=== PATIENT | female | born 1960 | race Caucasian/White ===

== ENCOUNTER 2017-04-13 08:42 | Emergency (ER) | payer BC ==
[~2017-04-13] VITALS: Ht 162.6 cm; Wt 73.0 kg
[~2017-04-13 08:42] MED LIST: BENADRYL25 MG PO; CIPRO500 MG PO; MELATONIN3 MG PO; MOTRIN600 MG PO; NAPROSYN250 MG PO; NEXIUM40 MG PO; PRILOSEC20 MG PO; PROZAC20 M1 PO; VITAMIN B-12500 MCG PO; VITAMIN D-32000 UNIT PO; XYZAL5 MG PO; ZOFRAN4 MG PO
[2017-04-13 10:30] LABS: EOSINOPHIL (%) 0 % (0-5); INSTRUMENT ABS NEUTROPHIL CT 2.8 K/uL; LYMPHOCYTE COUNT 0.6 K/uL (1.0-2.8); MCH 26.6 PG (29.0-34.0); MCHC 33.3 G/DL (30.0-36.0); MEAN PLAT.VOLUME 10.1 uM^3 (9.5-12.4); MONOCYTE (%) 8.5 % (3-12); MONOCYTE COUNT 0.3 K/uL (0-0.8); NEUTROPHIL (%) 74.4 % (45-76); NEUTROPHIL COUNT 2.8 K/uL (1.8-6.4); PLATELET COUNT 155 K/uL (156-360); RBC DIS.WIDTH-CV 14.2 % (11.8-14.6); RBC DIS.WIDTH-SD 41.1 % (39-53); WHITE BLOOD COUNT 3.8 K/uL (4.1-10.2)
[2017-04-13 10:35] LABS: CHLORIDE 107 mEq/L (99-109); POTASSIUM 3.8 mEq/L (3.7-5.4); SODIUM 138 mEq/L (136-147)
[2017-04-13 10:37] LABS: GLUCOSE 118 mg/dL (70-99)
[2017-04-13 10:39] LABS: ANION GAP 11 MEQ/L (2-14); TOTAL BILIRUBIN 0.4 mg/dL (0.0-1.0)
[2017-04-13 10:41] LABS: ALKALINE PHOSPHATASE 75 IU/L (3-129); GFR ESTIMATE (CALCULATED) > 59 mL/min/
[2017-04-13 10:42] LABS: UREA NITROGEN (BUN) 20 mg/dL (9-23)
[2017-04-13 12:46] LABS: LYME DISEASE SEROLOGY SCREEN POSITIVE (NEGATIVE)
[2017-04-13] MEDS ORDERED: NORCO 5/3251 TABLET PO (14:27)
[2017-04-13] MEDS ORDERED: DOXYCYCLINE HY100 MG PO (14:27)
[2017-04-13] MEDS ORDERED: ZOFRAN ODT4 MG PO (14:27)
[2017-04-13 14:50] VITALS: BP 121/72
== END 2017-04-13 15:02 | disposition home or self-care (01) ==
LOC: EME 08:42
PROVIDERS: Emergency Medicine
DX: A69.21 Meningitis due to Lyme disease (principal); R51 Headache; R11.0 Nausea
CPT/HCPCS: 70450; 80053; 81003; 82945; 83605; 84157; 85025; 86617 90; 86618; 87040; 87070; 87205; 89051; 99281; 99285; J0696; J0780; J1200; J1885; J2405; J7030; J7050